=== PATIENT | male | born 1980 | race African-American/Black ===

== ENCOUNTER 2017-12-26 05:27 | Inpatient (IN) | payer OTHER, SELFPAY ==
[2017-12-26 06:45] LABS: #Basophils 0.1 thou/uL (0.0-0.2); #Eosinphils 0.1 thou/uL (0.0-0.7); #Lymphocytes 1.6 thou/uL (1.20-3.40); #Monocytes 0.5 thou/uL (0.11-0.59); #Neutrophils 4.1 thou/uL (1.40-6.50); %Basophils 1.2 % (0.0-1.0); %Eosinophils 1.7 % (0.0-10.0); %Lymphocytes 25.4 % (21.0-51.0); %Monocytes 7.7 % (0.0-10.0); Hemoglobin 13.8 g/dL (14.0-18.0); Mean Corpuscular HGB CONC 33.9 g/dL (32.0-36.0); Mean Corpuscular Hemoglobin 27.7 pg (27.0-31.0); Mean Corpuscular Volume 81.7 fL (78.0-98.0); Mean Platelet Volume 8.5 fL (7.4-10.4); Platelet Count 193 thou/uL (130-400); RBC Distribution Width 12.4 % (11.5-14.5); Red Blood Cell (RBC) Count 4.98 mill/uL (4.70-6.10); White Blood Cell (WBC) Count 6.4 thou/uL (4.8-10.8)
[2017-12-26 07:02] LABS: ALT (SGPT) 17 U/L (8-55); AST (SGOT) 25 U/L (5-34); Albumin 4.5 g/dL (3.5-5.0); Alkaline Phosphatase 81 U/L (40-150); Anion Gap 16 mmol/L (10-20); BUN (Urea Nitrogen) 14 mg/dL (8.9-20.6); Bilirubin, Total 0.4 mg/dL (0.2-1.2); Calc. Creatinine Clearance 0 mL/min (70-130); Calcium 9.1 mg/dL (7.8-10.44); Carbon Dioxide 20 mmol/L (22-29); Chloride 108 mmol/L (98-107); Estimated GFR-MDRD 75; Globulin 2.8 g/dL (2.4-3.5); Glucose 96 mg/dL (70-105); Protein, Total 7.3 g/dL (6.0-8.3); Sodium 140 mmol/L (136-145)
[2017-12-26] MEDS ORDERED: Adacel (T-DAP) 0.5 ML VIAL ONE (07:19)
--- NOTE | 2017-12-26 07:25 | RAD ---
THREE VIEWS LEFT HAND: COMPARISON: None. 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 FINDINGS: Three views left hand show subcutaneous air throughout the volar and dorsal aspects of the hand. Dif fuse soft tissue swelling is seen. No radiopaque foreign body is seen. No fracture or dislocation a re seen. IMPRESSION: Extensive subcutaneous air as above. POS: [facility]
[2017-12-26] MEDS ORDERED: Piperacillin/Tazobactam 4.5 GM VIAL ONE (07:44)
[2017-12-26] MEDS ORDERED: Vancomycin HCl 1.5 GM in Sodium Chloride 0.9% 250 ML 300 ML IVPB SCH (08:00)
[2017-12-26] MEDS ORDERED: Ketorolac Tromethamine 30 MG/ML VIAL ONE (08:18)
[2017-12-26] MEDS ORDERED: Sodium Chloride 0.9% 30 ML ONE (10:17)
[2017-12-26] MEDS ORDERED: Bupivacaine PF 0.5% 30 ML VIAL ONE (10:17)
[2017-12-26] MEDS ORDERED: Bacitracin Zinc Ointment 30 gm TUBE ONE (10:17)
[2017-12-26] MEDS ORDERED: Betamet Acet/Betamet Na Ph 30 MG/5 ML VIAL ONE (10:17)
[2017-12-26] MEDS ORDERED: Fentanyl 250 MCG/5 ML VIAL ONE (10:20)
[2017-12-26] MEDS ORDERED: Midazolam HCl 2 mg/2 ml Vial ONE (10:20)
[2017-12-26] MEDS ORDERED: Ondansetron HCl/PF 4 MG/2 ML Vial IV PRN (12:53)
[2017-12-26] MEDS ORDERED: Bisacodyl 10 MG SUPP PR PRN (12:53)
[2017-12-26] MEDS ORDERED: Morphine 4 MG/ML Carpuject IVP PRN (12:53)
[2017-12-26] MEDS ORDERED: traMADol HCl 50 MG TAB PO PRN (12:53)
[2017-12-26] MEDS ORDERED: Promethazine HCl 25 MG/ML VIAL IM PRN (12:53)
[2017-12-26] MEDS ORDERED: Milk Of Magnesia 30 ML UDCUP PO PRN (12:53)
[2017-12-26] MEDS ORDERED: Communication Order-Pharmacy FS PRN (13:00)
[2017-12-26] MEDS ORDERED: Fentanyl 100 MCG/2 ML VIAL ONE ×2 (13:01→13:12)
--- NOTE | 2017-12-26 13:42 | OP ---
DATE OF PROCEDURE: 12/26/2017 SURGEON: Dr. Francisco Alcala PREOPERATIVE DIAGNOSES: Left hand palm ring finger, carpal tunnel, dorsal, third metacarpal high pre ssure injection with water, now greater than 14 hours old by the time of surgical intervention with f indings of frothy liquid, without gross infection, 8-3 to the mid carpal tunnel region palmarly and d orsally occupying the area around the third metacarpal from the neck shaft junction to the base shaft junction. PROCEDURE PERFORMED: 1. Left middle finger. A. Flexor digitorum profundus tenosynovectomy radical finger level. 2. Left middle finger tendon sheath irrigation both tendons listed above. 3. Left ring finger. A. Flexor digitorum profundus and superficialis radical flexor tenosynovectomy with 2 tendon sheath irrigation same levels (A3 anette proximally). 4. Palmar flexor digitorum profundus and flexor digitorum superficialis tenosynovectomy hand. 5. Dorsal wound hand, debridement radical. 6. Carpal tunnel release with radical flexor tenosynovectomy at the level of the carpal canal. 7. Neuroplasty, ring finger and middle finger digital nerve radial to the webspace in between the tw o. 8. Applications; drains, [place] following the hole created by the wound, the impression hole and de bridement. 9. Dorsal compartment releases x3, left hand. SPECIMENS: He had tenosynovial plus wound debridement, palmar ring finger, middle finger interspace dorsally and 2 tenosynovial from carpal tunnel, radical flexor tenosynovectomy. TOURNIQUET TIME: 40 minutes. BLOOD LOSS: 50 mL. FINDINGS: Frothy-like fluid flexor digitorum profundus superficialis middle finger and ring finger u p to the level of the A3 anette and as far proximally to the carpal tunnel on the palmar side on the dorsal same type fluid both sides of the middle finger metacarpal. INDICATIONS: The patient had a high pressure holes, ____ was used in a water for industrial cleaning at approximately 2000 hours on the day before surgery, but presented to the emergency room approxima tely 6:30 because of the pain that kept him from sleeping this a.m. and when examined had evidence of early compartment syndrome as well as radiographic evidence of air and fluid levels not normally see n on plain normal x-ray. It was felt that urgent surgical intervention was needed and he was placed as soon as possible on the surgery schedule causing a transfer of other surgical patients of less prachi ority to different times. ANESTHESIA: General LMA technique augmented by 30 mL 0.5% Marcaine around the incision and dressing of the wound. All wounds dressed open. DESCRIPTION OF PROCEDURE: After successful general LMA technique, the limb was prepped and draped. The patient had the time out done appropriately, the incision was marked out on the digits of the mid dle finger and ring finger for visualization of the tendon sheath at the A3 anette level, over the pr imary wound which was in the web space between the ring and the long finger just at the level of A1 p ulley and the carpal canal as well as the dorsal areas were quite swollen requiring a compartment rel ease. We immediately performed a compartment release on the dorsal side, we found frothy fluids escaping fr om the distal one-third of the third webspace incision between the index between the long and the rin g finger. We then after releasing all 3 compartments the dorsum of the hand including the thenar com partment, and both sides of both metacarpals, we then found a connection and began to debride the roxane sum. Once debridement was done, we irrigated this with 1500 mL normal saline between the three alon rtments of these sites. We turned our attention now to the palmar side of the hand and immediately, we found a 2 cm wound pat tern including the Cristopher incision that began at the base of the proximal phalanx of the middle finge r, carried through skin and subcutaneous tissue and we had to perform a formal neuroplasty magnificat ion in order to get on both sides of the metacarpals at the webspace, which we were able to do. We b eliseo debridement of all fat, denuded tissue, contaminant to include wound edges as well as performing a radical flexor tenosynovectomy we saw frothy fluid escaping proximally from the A1 anette. We rel ease both A1 pulleys and did a radical flexor tenosynovectomy to the flexor digitorum profundus and s uperficialis at this level in the palm. We then placed a moist dressing here and then made an incisi on over the palmar wrist flexion including the PIP joint, carried more proximally and found the junct ion of the tendons going to the A3 anette and from here made a sheath opening where we found more fro th-like fluid, but did not see this at the A2 anette level so at the A4 anette level, so we believe t his was the further migration of the fluid, placed a catheter here, a pediatric feeding tube, had a 14 gauge Angiocath from anesthesia and irrigated with 50 mL in each sheath. We then turned our atten tion to more proximal because there was still froth-like fluid in the proximal aspect of the palmar w ound. Went through the carpal canal to be more proximal, have all tendons go through it, opened carp al canal, performed a transcarpal ligament release and from here we were able to visualize the flexor tendons. We lifted each one up, there was froth-like fluid in the distal end of the carpal canal pr oximally. Did a radical flexor tenosynovectomy flexor digitorum profundus and superficialis to all l ne digits within the carpal canal. We placed a Yaima drain from dorsal to palmar into the area where the high pressure holes actually made a wound. Now that we had performed a digital nerve ____ as above, we irrigated all wounds with a total of 5 liters normal saline and Pulsavac pressure. We a lso was able then to release the tourniquet, finish our debridements, sent two different specimens to lab including one from the carpal canal tenosynovium, one from the synovium of the wound itself, pal mar middle finger and ring finger. We did not close any wound. Bulky dressing applied and the wound packed with normal saline soaked 4 x 4s underneath dry 4 x 4s, under ABDs and Kerlix. Plan dressing change in 36 hours post-surgery and will allow the patient to utilize the digits. He will be admitt ed for IV antibiotics as infection is highly possible.
[2017-12-26] MEDS ORDERED: Ondansetron HCl/PF 4 MG/2 ML Vial ONE (14:05)
[2017-12-26] MEDS ORDERED: Lidocaine 1% PF 5 ML VIAL ONE (14:05)
[2017-12-26] MEDS ORDERED: PROPOFOL 200 MG/20 ML VIAL ONE (14:05)
[2017-12-26] MEDS ORDERED: Dexamethasone 20 MG/5 ML VIAL ONE (14:05)
[2017-12-26] MEDS ORDERED: TETANUS AND DIPHTHERIA TOX/PF 0.5 ML DISP.SYRIN IM SCH (15:00)
[2017-12-26 15:43] VITALS: BMI 31.2
[2017-12-26] MEDS ORDERED: VANCOMYCIN IVPB PRN (16:13)
[2017-12-26] MEDS: Ketorolac Tromethamine 30 MG/ML VIAL IVP SCH ×2 (18:28→23:54)
[2017-12-26] MEDS: Vancomycin HCl 1.5 GM in Sodium Chloride 0.9% 250 ML 300 ML IVPB SCH (20:33)
[2017-12-26] MEDS: Aspirin 81 mg Enteric Coated Tablet PO SCH (20:34)
[2017-12-26] MEDS ORDERED: Vancomycin HCl 1 GM in Premix Bag 1 BAG IVPB SCH (21:00)
[2017-12-27] MEDS: Ketorolac Tromethamine 30 MG/ML VIAL IVP SCH ×3 (05:56→18:37)
[2017-12-27] MEDS: Vancomycin HCl 1.5 GM in Sodium Chloride 0.9% 250 ML 300 ML IVPB SCH ×2 (09:14→21:21)
[2017-12-27] MEDS: Aspirin 81 mg Enteric Coated Tablet PO SCH ×2 (09:14→21:21)
[2017-12-27] MEDS: HYDROcodone/Acetaminophen 10/325 mg Tablet PO PRN (14:02)
[2017-12-27 20:12] LABS: Vancomycin, Trough 10.5 ug/mL
[2017-12-28] MEDS: HYDROcodone/Acetaminophen 10/325 mg Tablet PO PRN ×3 (01:10→19:21)
[2017-12-28] MEDS: Aspirin 81 mg Enteric Coated Tablet PO SCH (09:08)
[2017-12-28] MEDS: Vancomycin HCl 1.5 GM in Sodium Chloride 0.9% 250 ML 300 ML IVPB SCH (09:08)
[2017-12-28 15:52] VITALS: BP 164/93; TEMP 97.5
== END 2017-12-28 19:35 | disposition home or self-care (01) | DRG 906 ==
LOC: ERS 05:27 → SDC 08:31 → SURG A 13:57
PROVIDERS: ADMIT Orthopaedic Surgery Hand Surgery; ATTEND Orthopaedic Surgery Hand Surgery
PROC: 01N50ZZ Release Median Nerve, Open Approach (ICD-10-PCS; principal; 2017-12-26)
PROC: 0LB80ZZ Excision of Left Hand Tendon, Open Approach (ICD-10-PCS; 2017-12-26)
PROC: 01Q60ZZ Repair Radial Nerve, Open Approach (ICD-10-PCS; 2017-12-26)
DX: S56.19 Other injury of flexor muscle, fascia and tendon of other and unspecified finger at forearm level (principal); W45.8XXA Other foreign body or object entering through skin, initial encounter; M65.842 Other synovitis and tenosynovitis, left hand; G56.02 Carpal tunnel syndrome, left upper limb
CPT/HCPCS: 36415; 80053; 80202; 85025; 87040; 87070; 87077; 87205; 90715; A4216; J0131; J0702; J1100; J1885; J2001; J2250; J2270; J2405; J2543; J2704; J3010; J3370; J3490; J7050; S0020

== ENCOUNTER 2018-01-03 19:12 | Observation (INO) | payer SELFPAY ==
[~2018-01-03 19:12] MED LIST: Dexamethasone 20 MG/5 ML VIAL ONE; Lidocaine 1% PF 5 ML VIAL ONE; Ondansetron HCl/PF 4 MG/2 ML Vial ONE; PROPOFOL 200 MG/20 ML VIAL ONE
[2018-01-03 19:44] LABS: #Eosinphils 0.1 thou/uL (0.0-0.7); #Monocytes 0.5 thou/uL (0.11-0.59); #Neutrophils 2.1 thou/uL (1.40-6.50); %Eosinophils 2.9 % (0.0-10.0); %Lymphocytes 40.9 % (21.0-51.0); %Monocytes 10.3 % (0.0-10.0); %Neutrophils 44.9 % (42.0-75.0); Hemoglobin 13.9 g/dL (14.0-18.0); Mean Corpuscular HGB CONC 34.7 g/dL (32.0-36.0); Mean Corpuscular Volume 80.9 fL (78.0-98.0); Mean Platelet Volume 8.5 fL (7.4-10.4); Platelet Count 210 thou/uL (130-400); RBC Distribution Width 12.1 % (11.5-14.5); Red Blood Cell (RBC) Count 4.97 mill/uL (4.70-6.10); White Blood Cell (WBC) Count 4.8 thou/uL (4.8-10.8)
[2018-01-03 19:58] LABS: Anion Gap 13 mmol/L (10-20); BUN (Urea Nitrogen) 20 mg/dL (8.9-20.6); Calc. Creatinine Clearance 0 mL/min (70-130); Calcium 9.4 mg/dL (7.8-10.44); Carbon Dioxide 27 mmol/L (22-29); Chloride 105 mmol/L (98-107); Estimated GFR-MDRD 53; Glucose 97 mg/dL (70-105); Potassium 4.3 mmol/L (3.5-5.1); Sodium 141 mmol/L (136-145)
[2018-01-03] MEDS ORDERED: Vancomycin HCl 1.5 GM in Sodium Chloride 0.9% 250 ML 300 ML IVPB SCH (20:00)
[2018-01-03] MEDS ORDERED: Bupivacaine PF 0.5% 30 ML VIAL ONE (20:34)
[2018-01-03] MEDS ORDERED: Sodium Chloride 0.9% 30 ML ONE (20:35)
[2018-01-03] MEDS ORDERED: Bacitracin Zinc Ointment 30 gm TUBE ONE (20:35)
[2018-01-03] MEDS ORDERED: Thrombin 5000 UNITS/5 ML VIAL ONE (20:35)
[2018-01-03] MEDS ORDERED: Fentanyl 100 MCG/2 ML VIAL ONE (23:36)
[2018-01-04] MEDS ORDERED: Fentanyl 100 MCG/2 ML VIAL ONE ×2 (00:48→01:11)
[2018-01-04] MEDS ORDERED: Ondansetron HCl/PF 4 MG/2 ML Vial IV PRN (00:50)
[2018-01-04] MEDS ORDERED: Promethazine HCl 25 MG/ML VIAL IM PRN (00:50)
[2018-01-04] MEDS ORDERED: traMADol HCl 50 MG TAB PO PRN (00:50)
[2018-01-04] MEDS ORDERED: Acetaminophen 325 MG TAB PO PRN (00:50)
[2018-01-04] MEDS ORDERED: Milk Of Magnesia 30 ML UDCUP PO PRN (00:50)
[2018-01-04] MEDS ORDERED: Meperidine HCl/PF 25 MG/ML VIAL IM PRN (00:53)
[2018-01-04] MEDS ORDERED: TETANUS AND DIPHTHERIA TOX/PF 0.5 ML DISP.SYRIN IM SCH (01:00)
[2018-01-04] MEDS ORDERED: Communication Order-Pharmacy FS SCH (01:00)
[2018-01-04] MEDS ORDERED: hydrALAZINE 20 MG/ML VIAL ONE (01:21)
[2018-01-04] MEDS ORDERED: hydrALAZINE 20 MG/ML VIAL SLOW IVP SCH (01:30)
[2018-01-04 01:54] VITALS: BMI 31.8
[2018-01-04] MEDS: HYDROcodone/Acetaminophen 5/325 mg Tablet PO PRN ×3 (02:01→16:14)
[2018-01-04] MEDS ORDERED: hydrALAZINE 20 MG/ML VIAL SLOW IVP PRN (02:19)
[2018-01-04] MEDS: CEFAZOLIN 1 GM in Sodium Chloride 0.9% 100 ML IVPB SCH ×3 (02:29→16:13)
[2018-01-04] MEDS: Morphine 4 MG/ML VIAL SLOW IVP PRN ×2 (02:29→04:31)
[2018-01-04] MEDS: Lactated Ringer's 1,000 ML IV SCH ×2 (02:30→06:06)
[2018-01-04] MEDS: Ketorolac Tromethamine 30 MG/ML VIAL IVP SCH ×3 (05:57→18:34)
[2018-01-04] MEDS ORDERED: Vancomycin HCl 1 GM in Premix Bag 1 BAG IVPB SCH (08:00)
[2018-01-04] MEDS ORDERED: Aspirin 81 mg Enteric Coated Tablet PO SCH (09:00)
[2018-01-04 09:40] LABS: Anion Gap 8 mmol/L (10-20); BUN (Urea Nitrogen) 15 mg/dL (8.9-20.6); Calc. Creatinine Clearance 95 mL/min (70-130); Calcium 9.1 mg/dL (7.8-10.44); Carbon Dioxide 29 mmol/L (22-29); Chloride 103 mmol/L (98-107); Estimated GFR-MDRD 61; Glucose 133 mg/dL (70-105); Potassium 4.8 mmol/L (3.5-5.1); Sodium 135 mmol/L (136-145)
[2018-01-04 11:26] VITALS: BP 113/72; TEMP 97.6
--- NOTE | 2018-01-04 15:06 | OP ---
PREOPERATIVE DIAGNOSIS: Multiple wounds at 30 cm, ring finger, long finger, palmar, and dorsal hand. FINDINGS: No gross infection or contamination either wounds. PROCEDURES PERFORMED: 1. Debridement of wounds, depth 05969 (down to including the tendon sheath, but not involving bone j oint). 2. A 30 cm total wound closure complex, hand, fingers, and palmar hand. ESTIMATED BLOOD LOSS: Less than 20 mL. TOURNIQUET TIME: None. INDICATIONS: The patient is under stage wound management, now 8 days after tenosynovectomy debrideme nt and a release of palmar fascia abscess, possible early compartment syndrome secondary to high pres sure injection injury from industrial water. He responded with dressing changes, packing the wound w ith antibiotics and on the day just prior to this procedure had negative evaluation for infection. T here was now being 8 days later time for wound closure. ANESTHESIA: General LMA technique by [facility]. DESCRIPTION OF PROCEDURE: After successful general LMA technique, the limb was prepped and draped. The patient had the limb inspected, time out was done appropriately, and then we began debridement. Debridement technique of all wounds included use of tenotomy scissors and Adson's to debride the woun d edges 1 mm circumferentially followed by use of curette in combination with [place] blade for debrid ement subcutaneously and inspection the tendons with irrigation using the bacitracin soaked in normal saline. With excisional technique and a depth was down to and including the tendon sheath, but not involved bone and joint and there was no gross contamination. Once all these wounds underwent this technique and a total of 3 liters of normal saline was used with bulb syringe pressure without complications, we obtained hemostasis and began with closed woun d with a 2-layer closer with outer layer being 3-0 nylon interrupted simple pattern. We finished the hemostasis, placed Adaptic, bacitracin over all the incisions total with a 2-incision on the amezquita of the ring and long finger respectively, the palmar hand primary incision over the carpal tunnel inc ision for compartment release and the dorsal compartment incisions we had closed 30 cm of wound. The patient then had a bulky dressing applied over the bacitracin, Adaptic with an Trev wrap loosely and left the operating room without evidence of anesthetic or operative complications.
--- NOTE | 2018-01-11 05:35 | PQF ---
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 Check the appropriate box and include in your discharge summary. [ ] [ ] [ ] [ ] Please check this box if this does not apply to this patient [ ] Unable to determine [ ] Other diagnosis: Review the following information and exercise your independent professional judgment in responding to the clarification. Based upon the clinical findings, risk factors, and treatment, please clarify if you are treating one of the above probable or suspected diagnoses. Physician Signature: rolanda jimenez md Date__ 13 jan 2018 1950 Time MTDD
== END 2018-01-04 18:59 | disposition home or self-care (01) ==
LOC: SDC 19:12 → SURG A 01-04 01:34
PROVIDERS: ADMIT Orthopaedic Surgery Hand Surgery; ATTEND Orthopaedic Surgery Hand Surgery
PROC: 0JQJ0ZZ Repair Right Hand Subcutaneous Tissue and Fascia, Open Approach (ICD-10-PCS; principal; 2018-01-04)
DX: T81.89XA Other complications of procedures, not elsewhere classified, initial encounter (principal)
CPT/HCPCS: 36415; 80048; 85025; 85652; 96365; 96374; 96375; 96376; A4216; G0378; J0360; J0690; J1100; J1885; J2001; J2270; J2405; J2704; J3010; J3370; J3490; J7050; S0020

== ENCOUNTER 2020-05-09 16:14 | Emergency (ER) | payer SELFPAY ==
[2020-05-09] MEDS ORDERED: Azithromycin 250 MG TAB ONE (16:35)
[2020-05-09] MEDS ORDERED: Lidocaine 1% PF 5 ML VIAL ONE (16:35)
[2020-05-09] MEDS ORDERED: cefTRIAXone\\ROCEPHIN 250 MG VIAL ONE (16:35)
[2020-05-09 17:30] LABS: Bacteria/HPF 1+ HPF (None Seen); Bilirubin Negative (Negative); Blood, Urine Trace (Negative); Clarity Turbid (Clear); Glucose, Urine (Dipstick) Normal (Negative); Ketone, Urine Negative (Negative); Leukocyte 500 Leu/uL (Negative); Nitrite Negative (Negative); Protein, Urine (Dipstick) 30 mg/dL (Neg-Trace); Specific Gravity, Urine 1.031 (1.002-1.036); Squamous Epithelial None Seen HPF (0-3); Urobilinogen Normal mg/dL (Less than 2); WBC/HPF Greater than 50 HPF (0-3); pH, Urine 5.5 (5.0-9.0)
[2020-05-14 20:04] LABS: Chlam.trachomatis by PCR,Urine Inconclusive (NotDetected)
== END 2020-05-09 18:09 | disposition home or self-care (01) ==
LOC: ERS 16:14
DX: N34.2 Other urethritis (principal); F17.210 Nicotine dependence, cigarettes, uncomplicated
CPT/HCPCS: 81003; 81015; 87086; 87491; 87591; 96372; 99283; J0696

== ENCOUNTER 2020-05-15 10:32 | Emergency (ER) | payer SELFPAY ==
--- NOTE | 2020-05-15 11:25 | RAD ---
PORTABLE CHEST 1 VIEW: DATE: 05/15/2020. TIME: 10:51 AM. HISTORY: High blood pressure, blurred vision, and headache. COMPARISON: 07/03/2016. FINDINGS: The heart size is normal. The lungs are expanded without focal areas of consolidation, pneumothorax, or pleural effusions. IMPRESSION: No radiographic evidence of acute cardiopulmonary process. POS: [facility]
[2020-05-15] MEDS ORDERED: Labetalol HCl 100 MG/20 ML VIAL ONE (11:28)
[2020-05-15 11:38] LABS: #Basophils 0.1 thou/uL (0.0-0.2); #Eosinphils 0.2 thou/uL (0.0-0.7); #Lymphocytes 2.3 thou/uL (1.20-3.40); #Monocytes 0.5 thou/uL (0.11-0.59); #Neutrophils 2.4 thou/uL (1.40-6.50); %Basophils 1.1 % (0.0-1.0); %Eosinophils 2.9 % (0.0-10.0); %Lymphocytes 42.8 % (21.0-51.0); %Monocytes 8.5 % (0.0-10.0); %Neutrophils 44.7 % (42.0-75.0); Hemoglobin 15.5 g/dL (14.0-18.0); Mean Corpuscular HGB CONC 32.6 g/dL (32.0-36.0); Mean Corpuscular Hemoglobin 26.6 pg (27.0-31.0); Mean Corpuscular Volume 81.6 fL (78.0-98.0); Mean Platelet Volume 8.7 fL (7.4-10.4); Platelet Count 232 thou/uL (130-400); RBC Distribution Width 12.1 % (11.5-14.5); Red Blood Cell (RBC) Count 5.82 mill/uL (4.70-6.10); White Blood Cell (WBC) Count 5.3 thou/uL (4.8-10.8)
[2020-05-15 12:15] LABS: ALT (SGPT) 16 U/L (8-55); AST (SGOT) 25 U/L (5-34); Albumin 4.8 g/dL (3.5-5.0); Alkaline Phosphatase 77 U/L (40-110); Anion Gap 18 mmol/L (10-20); BUN (Urea Nitrogen) 13 mg/dL (8.9-20.6); Bilirubin, Total 0.3 mg/dL (0.2-1.2); Calc. Creatinine Clearance 0 mL/min (70-130); Calcium 9.1 mg/dL (7.8-10.44); Carbon Dioxide 24 mmol/L (22-29); Chloride 104 mmol/L (98-107); Globulin 3.8 g/dL (2.4-3.5); Glucose 90 mg/dL (70-105); Potassium 4.1 mmol/L (3.5-5.1); Protein, Total 8.6 g/dL (6.0-8.3); Sodium 142 mmol/L (136-145)
[2020-05-15 12:49] LABS: Bacteria/HPF None Seen HPF (None Seen); Bilirubin Negative (Negative); Blood, Urine Negative (Negative); Clarity Clear (Clear); Glucose, Urine (Dipstick) Normal (Negative); Ketone, Urine Negative (Negative); Leukocyte 75 Leu/uL (Negative); Nitrite Negative (Negative); Protein, Urine (Dipstick) 20 mg/dL (Neg-Trace); RBC/HPF 0-3 HPF (0-3); Specific Gravity, Urine 1.028 (1.002-1.036); Squamous Epithelial 0-3 HPF (0-3); Urobilinogen Normal mg/dL (Less than 2); WBC/HPF 21-50 HPF (0-3); pH, Urine 5.5 (5.0-9.0)
== END 2020-05-15 12:52 | disposition home or self-care (01) ==
LOC: ERS 10:32
DX: I10 Essential (primary) hypertension (principal); F17.210 Nicotine dependence, cigarettes, uncomplicated
CPT/HCPCS: 71045; 80053; 81003; 81015; 84484; 85025; 93005; 96374

== ENCOUNTER 2020-07-31 06:10 | Emergency (ER) | payer SELFPAY | END 2020-07-31 06:37 | disposition home or self-care (01) | LOC: ERS 06:10 | DX: M25.532 Pain in left wrist (principal); F17.210 Nicotine dependence, cigarettes, uncomplicated; I10 Essential (primary) hypertension | CPT/HCPCS: 99283 ==

== ENCOUNTER 2020-09-26 08:01 | Emergency (ER) | payer SELFPAY ==
[2020-09-26] MEDS ORDERED: Acetaminophen 500 MG TAB ONE (08:30)
[2020-09-26 10:02] LABS: SARS-CoV-2 NAA Rapid Test DETECTED (NotDetected)
== END 2020-09-26 08:35 | disposition home or self-care (01) ==
LOC: ERS 08:01
DX: U07.1 COVID-19 (principal); I10 Essential (primary) hypertension; F17.210 Nicotine dependence, cigarettes, uncomplicated
CPT/HCPCS: 99283; U0002

== ENCOUNTER 2022-06-16 14:35 | Emergency (ER) | payer BC, SELFPAY | END 2022-06-16 15:59 | disposition home or self-care (01) | LOC: ERS 14:35 | DX: M25.531 Pain in right wrist (principal); I10 Essential (primary) hypertension ==

== ENCOUNTER 2023-12-29 16:56 | Emergency (ER) | payer BC ==
[2023-12-29 20:36] LABS: Influenza A by NAA Not Detected (NotDetected); Influenza B by NAA Not Detected (NotDetected); SARS-CoV-2 NAA Rapid Test Not Detected (NotDetected)
== END 2023-12-29 18:16 | disposition home or self-care (01) ==
LOC: ERS 16:56
DX: B34.9 Viral infection, unspecified (principal)
CPT/HCPCS: 71046